=== PATIENT | male | born 1940 | race Caucasian/White ===

== ENCOUNTER → 2018-01-14 | Outpatient (CLI) | payer MEDICARE, OTHER | LOC: COL.RAD 07:49 | DX: C34.11 Malignant neoplasm of upper lobe, right bronchus or lung (principal); J92.9 Pleural plaque without asbestos | CPT/HCPCS: Q9967 ==

== ENCOUNTER 2020-07-18 06:35 | Day surgery (SDC) | payer MEDICARE, OTHER ==
[~2020-07-18] VITALS: Ht 167.6 cm; Wt 63.0 kg
[2020-07-18] MEDS ORDERED: ELIQUIS 5MG PO (07:01)
[2020-07-18] MEDS ORDERED: PRINIVIL10 MG PO (07:01)
[2020-07-18] MEDS ORDERED: PRILOSEC 20MG20 MG PO (07:01)
[2020-07-18] MEDS ORDERED: HCTZ12.5TAB PO (07:01)
[2020-07-18] MEDS ORDERED: FERROUS SU325 MG/TAB PO (07:02)
[2020-07-18] MEDS ORDERED: ATIVAN 0.50.5 MG/TAB PO (07:02)
[2020-07-18] MEDS ORDERED: VISTARIL 2525 MG/CAP PO (07:03)
[2020-07-18] MEDS ORDERED: NEURONTIN300 MG/CAP PO (07:03)
[2020-07-18] MEDS ORDERED: KEPPRA 500MG500 MG PO (07:05)
[2020-07-18 07:12] VITALS: BP 159/64; PULSE 74; TEMP 98.3
[2020-07-18] MEDS ORDERED: BENADRYL25 M2 PO (07:12)
[2020-07-18 08:54] VITALS: BP 133/56; PULSE 75; TEMP 97.7
--- NOTE | 2020-07-18 08:54 | NUR ---
The patient arrived back to [facility] from the operating room at this time. The patient appears alert and oriented and denies any pain or nausea at this time. The patient agrees to try some water at this time. Post operative vital signs were started at this time. The patient has two incisions to his right upper chest that appears without redness or edema and are covered with surgical glue. Call light is within reach. Mask put back in place. Will continue to monitor the patient.
[2020-07-18 09:09] VITALS: BP 123/96; PULSE 66
--- NOTE | 2020-07-18 09:09 | NUR ---
The patient appears to be have tolerated the water well and agrees to try some orange juice. Vital signs appear stable. Will continue to monitor the patient.
[2020-07-18] MEDS ORDERED: NORCO 325 MG-51 TAB PO (09:10)
[2020-07-18 09:24] VITALS: BP 141/66; PULSE 72
--- NOTE | 2020-07-18 09:24 | NUR ---
The patient appears to be resting comfortably on the cart at this time. Call light is within reach. Will continue to monitor the patient.
[2020-07-18 09:39] VITALS: BP 152/59; PULSE 70
--- NOTE | 2020-07-18 09:39 | NUR ---
The patient has finished his juice and appeared to tolerate it well. The patient denies wanting anything further to eat or drink at this time. Vital sigsn remain stable. Will continue to monitor the patient.
[2020-07-18 09:55] VITALS: BP 139/60; PULSE 72
--- NOTE | 2020-07-18 09:55 | NUR ---
Discharge instructions were reviewed with the patient and then with his family over the phone. They all verbalized understanding and have no questions for the nurse at this time. The patient's IV to his right hand was removed and a pressure dressing was applied to the site. The nurse instructed the patient to get dressed and notify the staff when he is ready to be escorted out.
--- NOTE | 2020-07-18 10:10 | NUR ---
The patient was escorted out via wheelchair to a private vehicle by [employer] [employer]. The patient's belongings and discharge paperwork were sent with him. The patient's is present to drive him home.
== END 2020-07-18 10:10 | disposition home or self-care (01) ==
LOC: SDCO 06:35
DX: C34.91 Malignant neoplasm of unspecified part of right bronchus or lung (principal); C79.31 Secondary malignant neoplasm of brain; R56.9 Unspecified convulsions; L29.9 Pruritus, unspecified; I10 Essential (primary) hypertension; I25.10 Atherosclerotic heart disease of native coronary artery without angina pectoris; K21.9 Gastro-esophageal reflux disease without esophagitis; D64.9 Anemia, unspecified; Z20.828 Contact with and (suspected) exposure to other viral communicable diseases; Z79.01 Long term (current) use of anticoagulants; Z86.718 Personal history of other venous thrombosis and embolism; Z79.899 Other long term (current) drug therapy; Z79.52 Long term (current) use of systemic steroids; Z88.8 Allergy status to other drugs, medicaments and biological substances; Z87.891 Personal history of nicotine dependence; Z98.61 Coronary angioplasty status
CPT/HCPCS: C1788; J0690; J1644; J2704; J7120